=== PATIENT | female | born 1990 | race Caucasian/White ===

== ENCOUNTER → 2018-04-08 15:16 | Outpatient (CLI) | payer SELFPAY ==
[2018-04-16 12:30] LABS: HPV HC, High Risk Positive (Negative); HPV Reflexed? YES, CHARGE PATIENT
== END ==
PROVIDERS: Visit Provider Obstetrics & Gynecology
DX: Z12.4 Encounter for screening for malignant neoplasm of cervix (principal)
CPT/HCPCS: 87624; 88175; G0145